=== PATIENT | female | born 1990 | race Caucasian/White ===

== ENCOUNTER 2023-04-29 07:05 | Inpatient (IN) ==
[~2023-04-29 07:05] MED LIST: CITRIC ACID/SODIUM CITRATE 15 ML UDC PO SCH; LACTATED RINGER'S 1,000 ML IV SCH; OXYTOCIN 10 UNITS/ML VIAL ONE; ceFAZolin 2,000 MG in SYRINGE 0 ML IV SCH
[2023-04-29] MEDS ORDERED: LACTATED RINGER'S 1,000 ML IV SCH ×2 (07:30→11:15)
[2023-04-29] MEDS ORDERED: fentaNYL citrate PF 100 MCG/2 ML VIAL ONE ×2 (07:31→09:49)
[2023-04-29] MEDS ORDERED: LIDOCAINE 2%/EPINEPHRINE 1:200,000 20 ML PF ONE (07:31)
[2023-04-29] MEDS ORDERED: SODIUM CHLORIDE 0.9% PF INJ 10 ML VIAL ONE (07:31)
[2023-04-29] MEDS ORDERED: BUPIVACAINE 0.25% PF 30 ML VIAL ONE (07:31)
[2023-04-29] MEDS ORDERED: ePHEDrine sulfate 50 MG/ML AMP ONE (07:31)
[2023-04-29] MEDS ORDERED: fentaNYL 2MCG/ML ROPIVACAINE 1.25MG/ML 100 ML BAG EPI ONE (07:32)
--- NOTE | 2023-04-29 07:44 | Obstetrical Progress Note ---
Date of Service April 29, 2023 Assessment & Plan Admission and Anticipated Discharge Date Admission Date: April 29, 2023 Subjective Patient presented for external cephalic version, planned with Dr Wei today. Limited bedside ultrasound performed - brenda breech presentation, head in maternal LUQ. Posterior placenta. Adequate-appearing amniotic fluid. + cardiac activity, + movement. Lab orders placed. Results & Data Vital Signs (Past 12 Hours) Vital Signs Temp Pulse Resp BP 04/29/23 07:13 36.8 C 95 H 20 114/66 PG Care Time/CCT Total # of Minutes Spent Total Time Spent with Patient: Total time spent is greater than 50% in coordination of care (as documented) at patient's floor/unit and/or counseling patient: Coding Level of Care Code None Diagnoses
[2023-04-29] MEDS ORDERED: TERBUTALINE SULFATE 1 MG/ML VIAL SQ ONE (07:46)
[2023-04-29 08:05] LABS: Basophils # (auto) 0.05 K/uL (0-0.2); Basophils % (auto) 0.4 %; Eosinophils # (auto) 0.25 K/uL (0-0.50); Eosinophils % (auto) 1.8 %; Hematocrit (blood only) 29.8 % (37.0-47.0); Hemoglobin 10.2 g/dl (12.0-16.0); Immature Granulocytes # (auto) 0.25 K/uL (0.01-0.20); Immature Granulocytes % (auto) 1.8 %; Lymphocytes % (auto) 17.2 %; Mean Corpuscular Hemoglobin 30.3 pg (25.0-34.0); Mean Corpuscular Hgb Conc 34.2 g/dL (32.0-36.0); Mean Corpuscular Volume 88.4 fL (80.0-100.0); Monocytes # (auto) 1.01 K/uL (0.11-0.59); Monocytes % (auto) 7.3 %; Neutrophils # (auto) 9.96 K/uL (1.40-6.50); Neutrophils % (auto) 71.5 %; Platelet Count 236 K/uL (130-400); RDW Coefficient of Variation 13.3 % (11.5-14.5); RDW Standard Deviation 42.3 fL (36.4-46.3); Red Blood Count 3.37 M/uL (4.20-5.40); White Blood Count 13.92 K/ul (4.8-10.8)
--- NOTE | 2023-04-29 08:09 | Anesthesiology Consultation ---
Date of Service April 29, 2023 Assessment & Plan Chart Review Chart Review: Acceptable Risk for Surgery and Patient NOT seen in Pre Admission Testing ASA ASA2 Proposed Anesthesia Anesthesia Type: MAC Epidural Risk / Benefits Reviewed With: PT / POA / Parent / Guardian, Accepts Plan and Informed Consent Obtained Additional Comments: will attempt version with epidural in the OR History Surgery Operation Date: 04/29/23 07:30 Proposed Procedures p Section (Delivery of Baby Through Abdominal Incision) - Antonia Wei MD, FACOG Height/Weight Height: 5 ft 2 in Weight: 86.636 kg Allergies Allergy/AdvReac Type Severity Reaction Status Date / Time cat dander Allergy Watery Eye Verified 04/29/23 07:16 dog dander Allergy Watery Eye Verified 04/29/23 07:16 grass pollen Allergy Watery Eye Verified 04/29/23 07:16 No Known Drug Allergies Allergy Unknown Verified 04/29/23 07:16 Medications Home Medications Medication Instructions Recorded Confirmed Last Taken prenat.vits,mateus,ltm-qrut-ksmbr 1 tab PO DAILY 10/07/22 04/29/23 04/28/23 19:00 Past Medical History Medical History No significant past medical history Exercise / Class Metabolic Activity II 4-5 Yardwork/Stairs/Walk up hill Past Family History Family History Mother Crohn's disease Denies family history of Colon cancer Ovarian cancer Prostate cancer Myocardial infarction Breast cancer Past Surgical History Surgical History S/P ACL repair S/P lateral meniscus repair of right knee S/P wisdom tooth extraction Past Anesthesia History No Hx of Anesthesia Complications and No Family Hx of Anesthesia Complications History of PONV No Hx of PONV and No Hx of Motion Sickness Social History Smoking Status: Never smoker Do You Dip or Chew Tobacco: No Hx Alcohol Use: Yes Alcohol type: beer, wine and hard liquor Hx Substance Use: No Review of Systems denies fever/cough/ colds/ chest pain/ SOB/ NEDA denies NEDA Physical Exam Vital Signs Last Vital Signs Temp 36.8 C 04/29/23 07:13 Pulse 95 H 07/12/23 07:13 Resp 20 04/29/23 07:13 BP 114/66 04/29/23 07:13 ENMT Mouth: no TMJ abnormality and no dentition abnormality Thyromental Distance: > or= 3.5 Finger Breadths Mallampati Class: II Neck neck extension not limited Respiratory normal respiratory effort; no respiratory distress Auscultation: lungs clear to auscultation bilaterally Cardiovascular Rate/Rhythm: regular rate and regular rhythm Neurologic moves all extremities Psychiatric Orientation: alert and oriented x 3
--- NOTE | 2023-04-29 08:49 | History & Physical Report ---
Date of Service April 29, 2023 Assessment & Plan (1) 39 weeks gestation of : (2) Breech presentation: Plan Will plan ecv this am. Consent reviewed and signed. Patient aware will induce labor if successful or c/s if not. She is planning epidural prior to turn, if ctx persist, will plan terb. FHTs categ 1. Consent for c/s also signed yesterday and reviewed. Admission and Anticipated Discharge Date Admission Date: April 29, 2023 History of Present Illness Chief Complaint: planned ecv Primary Care Provider: Ortega Root, 32yo at 39+wks ega presents to L&D for planned ecv and possible induction vs. c/s. Patient feels well this am. NPO. She notes US this am shows baby still breech. Yesterday had u/s with normal dvp and no evidence of nuchal. Ready to proceed. Has met anesthesia and he is coming to place epidural. PNC c/b 1. LGSIL pap 2. Breech PNL rh pos, ri, gbs neg OBH: g1 GYNH: nl paps no stds Allergies Allergy/AdvReac Type Severity Reaction Status Date / Time cat dander Allergy Watery Eye Verified 04/29/23 07:16 dog dander Allergy Watery Eye Verified 04/29/23 07:16 grass pollen Allergy Watery Eye Verified 04/29/23 07:16 No Known Drug Allergies Allergy Unknown Verified 04/29/23 07:16 Home Medications Medication Instructions Recorded Confirmed Type prenat.vits,mateus,jdm-daey-ijqyc 1 tab PO DAILY 10/07/22 04/29/23 History Patient History Medical History (Updated 04/29/23 @ 08:47 by Antonia Wei MD, FACOG) No significant past medical history Surgical History S/P ACL repair S/P lateral meniscus repair of right knee S/P wisdom tooth extraction Family History Mother Crohn's disease Denies family history of Colon cancer Ovarian cancer Prostate cancer Myocardial infarction Breast cancer Social History (Updated 10/07/22 @ 07:45 by Gini Hamilton) Smoking Status: Never smoker Second Hand Exposure: No; Do You Dip or Chew Tobacco: No; Hx Alcohol Use: Yes Alcohol type: beer, wine and hard liquor Alcohol Intake Frequency: Monthly or Less Hx Substance Use: No Preferred Language: Latvian Communication Ability: Effective Visual Impairment: No Limitations Hearing Ability: Normal Coat Maker Required: No Beliefs That Will Affect Care: None marital status: marital status details: Radames (31) [phone], Current Living Situation: Spouse Current Living Situation Comment: Lives with spouse, 3 cats, 2 dogs. current occupational status: employed current occupation: [employer] Feels Safe at Home: Yes Childhood Exposure to Second-Hand Smoke: No Diet: regular caffeine: No Dental Care, Regularly: No Physical Activity Frequency: 1-2 Times per Week Seatbelt Use: always Sunscreen Use: Yes Assistive Devices: None Review of Systems as per Subjective / HPI Physical Exam Constitutional: WD/WN, vitals as above Gastrointestinal (Abdomen): soft gravid nt Musculoskeletal: no edema Neurologic: grossly normal Psychiatric: A+Ox3, euthymic affect Genitourinary: OB Exam Monitor Tracing: + external FHT monitor used, + external uterine monitor used (q2-4), + category I and + normal FHT variability Results & Data Vital Signs (Past 12 Hours) Vital Signs Temp Pulse Resp BP 04/29/23 07:13 98.2 F 95 H 20 114/66 Coding Level of Care Code None Diagnoses 39 weeks gestation of Z3A.39 Breech presentation O32.1XX0
--- NOTE | 2023-04-29 09:47 | Obstetrical Progress Note ---
Date of Service April 29, 2023 Assessment & Plan (1) 39 weeks gestation of : (2) Breech presentation: (3) Failed external cephalic version: Plan ecv unsuccessful will plan c/s. consent already reviewed signed, pt and partner deny questions. Admission and Anticipated Discharge Date Admission Date: April 29, 2023 Subjective Ready for ecv Physical Exam Genitourinary: PROCEDURE: attempted 2 forward rolls and one backward roll. each time fhts checked in between. pt and baby rubi well. continues breech. Results & Data Vital Signs (Past 12 Hours) Vital Signs Temp Pulse Resp BP Pulse Ox 04/29/23 09:36 88 04/29/23 09:36 120/70 04/29/23 09:34 95 H 04/29/23 09:34 121/71 04/29/23 09:33 100 04/29/23 09:33 102 H 04/29/23 09:32 92 04/29/23 09:32 114 H 04/29/23 09:32 119/71 04/29/23 09:30 100 H 04/29/23 09:30 112/62 04/29/23 09:28 100 04/29/23 09:28 97 H 04/29/23 09:28 111/56 L 04/29/23 09:26 103 H 04/29/23 09:26 110/70 04/29/23 09:25 92 04/29/23 09:25 97 H 04/29/23 09:24 93 H 04/29/23 09:24 100/70 04/29/23 09:23 96 04/29/23 09:23 100 H 04/29/23 09:22 93 H 04/29/23 09:22 97/67 L 04/29/23 09:20 95 H 04/29/23 09:20 92/57 L 04/29/23 09:18 95 04/29/23 09:18 95 H 04/29/23 09:18 101/68 04/29/23 09:16 110 H 04/29/23 09:16 96/71 L 04/29/23 09:14 94 H 04/29/23 09:14 95/60 L 04/29/23 09:13 100 04/29/23 09:13 94 H 04/29/23 09:10 20 04/29/23 09:10 20 07/12/23 09:12 82 04/29/23 09:12 85/55 L 04/29/23 09:10 81 04/29/23 09:10 81/46 L 04/29/23 09:08 100 04/29/23 09:08 80 04/29/23 09:07 87 04/29/23 09:07 92/54 L 04/29/23 09:04 97 H 04/29/23 09:04 109/70 04/29/23 09:03 20 04/29/23 09:03 98.1 F 20 04/29/23 09:03 100 04/29/23 09:03 82 04/29/23 09:02 97 H 04/29/23 09:02 107/68 04/29/23 09:00 93 H 04/29/23 09:00 111/72 04/29/23 08:58 100 04/29/23 08:58 97 H 04/29/23 08:58 96 H 04/29/23 08:58 114/75 04/29/23 08:53 100 04/29/23 08:53 95 H 04/29/23 08:48 100 04/29/23 08:48 92 H 04/29/23 08:48 83 04/29/23 08:48 108/68 04/29/23 07:13 98.2 F 95 H 20 114/66 PG Care Time/CCT Total # of Minutes Spent Total Time Spent with Patient: Total time spent is greater than 50% in coordination of care (as documented) at patient's floor/unit and/or counseling patient: Coding Level of Care Code None Diagnoses 39 weeks gestation of Z3A.39 Breech presentation O32.1XX0 Failed external cephalic version O32.9XX0
[2023-04-29] MEDS ORDERED: MoRPHine SULFATE PF 1 MG/ML 10 ML AMP/VIAL ONE (09:49)
[2023-04-29] MEDS ORDERED: ePHEDrine sulfate 50 MG/ML AMP IV PRN (10:04)
[2023-04-29] MEDS ORDERED: MoRPHine SULFATE PF 1 MG/ML 10 ML AMP/VIAL EPI ONE (10:04)
[2023-04-29] MEDS ORDERED: NALOXONE HCL 0.4 MG/1 ML VIAL/CARP IV PRN (10:04)
[2023-04-29] MEDS ORDERED: NALOXONE HCL 0.08 MG in SYRINGE 1.8 ML IV PRN (10:04)
[2023-04-29] MEDS ORDERED: NALBUPHINE HCL INJ 10 MG/ML AMP IV PRN (10:04)
[2023-04-29] MEDS ORDERED: diphenhydrAMINE 50 MG/ML VIAL IV PRN (10:04)
[2023-04-29] MEDS ORDERED: LACTATED RINGER'S 500 ML IV PRN (10:04)
[2023-04-29] MEDS ORDERED: ONDANSETRON INJ 2 MG/ML 2 ML VIAL IV PRN ×2 (10:04→11:13)
[2023-04-29] MEDS ORDERED: NALOXONE HCL 1 MG in SODIUM CHLORIDE 0.9% 1000ML 1,000 ML IV PRN (10:04)
[2023-04-29] MEDS ORDERED: SODIUM CHLORIDE 0.9% 1000ML 1,000 ML IV SCH (10:15)
[2023-04-29] MEDS ORDERED: DC INTRASPINAL MORPHINE SCH (10:15)
[2023-04-29] MEDS ORDERED: NO NARCOTICS OR SEDATIVES SCH (10:15)
[2023-04-29] MEDS ORDERED: PHENYLEPHRINE 100MCG/ML 5ML SYR ONE (10:43)
[2023-04-29] MEDS ORDERED: ONDANSETRON INJ 2 MG/ML 2 ML VIAL ONE (10:44)
--- NOTE | 2023-04-29 11:04 | Operative Report ---
PG Post Operative Report Pre & Post Diagnosis Operation Date: 04/29/23 07:30 Pre-Op Diagnosis: 1. 39 week iup 2. Breech presentation 3. Failed external cephalic version Post-Op Diagnosis: Same;Delivery of a live baby girl at 1032 I identified the patient and participated in the time-out.: Yes Procedure Operation Date: 04/29/23 07:30 Actual Procedures p Primary Low Transverse Section (Delivery of Baby Through Abdominal Incision) - Antonia Wei MD, FACOG Surgeon Antonia Wei MD, FACOG [employer]ner RN, PGY 1 Estimated Blood Loss 700 Findings Consistent with Post-Op Diagnosis (viable female apgars pending, normal uterus, tubes and ovaries bilaterally. ) Fluids 1200 Specimens cord blood Drains caldwell Anesthesia Type Labor Epidural Complications none Disposition Accompanied Patient To Recovery: No Disposition: L&D Indications 32yo with breech presentation with failed attempt at version for planned section at 39 wks. Description of Procedure The patient was taken to the operating room and identified. After adequate ane sthesia was obtained, she was placed in the supine position with a leftward tilt on the operating table and prepped and draped in the usual sterile fashion. A caldwell catheter had already been placed. The knife was used to create a Pfannensteil skin incision that was carried down to the underlying layer of fascia. The fascia was nicked in the midline and this opening was extended laterally using Dickinson scissors. Janine clamps were placed on the superior and inferior aspect of the fascial incision tenting it upward and the underlying rectus muscles were dissected off the overlying fascia both sharply and bluntly using Dickinson scissors. The rectus muscles were bluntly in the midline. The peritoneal cavity was bluntly entered into. This opening was stretched. The bladder blade was placed. The vesicouterine peritoneum was elevated and opened up into and the bladder flap was created digitally and bladder blade was replaced. The knife was used to create a hysterotomy and this opening was stretched. The operators hand was placed through the hysterotomy and the bladder blade was removed. The buttocks was elevated with fundal pressure baby delivered to level of scapulae, arms swept across anterior midline, head flexed and delivered. The cord was clamped and cut and the 's mouth and nares were bulb suction. The was handed off to the awaiting pediatricians. Cord blood was obtained. The placenta was manually expressed. The uterus was exteriorized and cleared of all clots and debris. Dilute IV Pitocin was begun. The uterine tone was improving. The hysterotomy was closed in a running interlocking fashion using 0 Vicryl followed by a second imbricating layer of 0 Vicryl. The hysterotomy was hemostatic. The pelvis was irrigated. The uterus was returned to the abdomen. The gutters were cleared of all clots and debris. The hysterotomy was reinspected and an area of oozing at midline hysterotomy stitched with single figure of eight suture of 2-0 vicyrl. The hysterotomy was noted to be hemostatic. The fascia was then closed in running fashion using 0 Vicryl. The subcutaneous fat was copiously irrigated and reapproximated using 2-0 chromic. The skin was closed in a subcuticular fashion using 4-0 monocryl. At this point the procedure was terminated. The patient was transferred to the recovery room in stable condition. All sponge, lap and needle counts are correct x2. I attest to the content of the Intraoperative Record and any orders documented therein. Any exceptions are noted below. OB Procedure Charges 71146
[2023-04-29] MEDS ORDERED: SENNA 8.6 MG TAB PO PRN (11:13)
[2023-04-29] MEDS ORDERED: IBUPROFEN 600 MG TAB PO PRN (11:13)
[2023-04-29] MEDS ORDERED: oxyCODONE/ACETAMINOPHEN 5mg/325mg TAB PO PRN (11:13)
[2023-04-29] MEDS ORDERED: DIPHTHERIA/TETANUS/PERTUSSIS Vaccine (Tdap, Age 7+yrs) 0.5mL SYR/VL IM ONE (11:13)
[2023-04-29] MEDS ORDERED: KETOROLAC 30 MG/ML VIAL IV PRN (11:13)
[2023-04-29] MEDS ORDERED: HYDROCORTISONE ACETATE 25 MG SUPP PR PRN (11:13)
[2023-04-29] MEDS ORDERED: PROMETHAZINE HCL 25 MG in SODIUM CHLORIDE 0.9% 50 ML IV PRN (11:13)
[2023-04-29] MEDS ORDERED: MAGNESIUM HYDROXIDE SUSP 30 ML UDC PO PRN (11:13)
[2023-04-29] MEDS ORDERED: BENZOCAINE 20% AER SPR 82.5 GM CAN EXT PRN (11:13)
[2023-04-29] MEDS: OXYTOCIN 20 UNITS in LACTATED RINGER'S 1,000 ML IV SCH ×2 (11:38→19:47)
--- NOTE | 2023-04-29 13:07 | Anesthesiology Progress Note ---
Date of Service April 29, 2023 Anesthesia Post Procedure Vital Signs Vital Signs: Temp Pulse Resp BP Pulse Ox 04/29/23 12:40 20 04/29/23 12:10 20 04/29/23 12:00 20 04/29/23 11:50 18 04/29/23 11:40 18 04/29/23 11:30 18 04/29/23 11:11 36.6 C 20 04/29/23 11:21 20 04/29/23 13:05 100 04/29/23 13:05 79 04/29/23 13:00 100 04/29/23 13:00 84 04/29/23 12:55 100 04/29/23 12:55 83 04/29/23 12:50 100 04/29/23 12:50 93 H 04/29/23 12:45 100 04/29/23 12:45 82 04/29/23 12:40 100 04/29/23 12:40 77 04/29/23 12:41 78 04/29/23 12:41 121/83 04/29/23 12:35 100 04/29/23 12:35 85 04/29/23 12:30 100 04/29/23 12:30 75 04/29/23 12:25 100 04/29/23 12:25 75 04/29/23 12:20 100 04/29/23 12:20 79 04/29/23 12:15 100 04/29/23 12:15 104 H 04/29/23 12:10 100 04/29/23 12:10 78 04/29/23 12:11 134 H 04/29/23 12:11 122/56 L 04/29/23 12:05 100 04/29/23 12:05 76 04/29/23 12:00 100 04/29/23 12:00 77 04/29/23 12:01 74 04/29/23 12:01 115/51 L 04/29/23 11:55 100 04/29/23 11:55 80 04/29/23 11:51 79 04/29/23 11:51 115/53 L 04/29/23 11:50 100 04/29/23 11:50 81 04/29/23 11:45 100 04/29/23 11:45 79 04/29/23 11:40 99 04/29/23 11:40 79 07/12/23 11:41 78 04/29/23 11:41 101/51 L 04/29/23 11:35 96 04/29/23 11:35 86 04/29/23 11:34 92 04/29/23 11:34 81 04/29/23 11:30 100 04/29/23 11:30 73 04/29/23 11:30 101/54 L 04/29/23 11:25 100 04/29/23 11:25 74 04/29/23 11:20 100 04/29/23 11:20 76 04/29/23 11:21 72 04/29/23 11:21 96/46 L 04/29/23 11:15 100 04/29/23 11:15 73 04/29/23 11:11 75 04/29/23 11:11 98/51 L 04/29/23 11:10 100 04/29/23 11:10 75 04/29/23 10:03 100 04/29/23 10:03 81 04/29/23 10:04 81 04/29/23 10:04 115/65 04/29/23 10:03 92 04/29/23 10:03 79 04/29/23 10:00 20 04/29/23 10:00 20 04/29/23 10:00 73 04/29/23 10:00 108/61 04/29/23 09:58 100 04/29/23 09:58 81 04/29/23 09:55 74 04/29/23 09:55 109/63 04/29/23 09:53 100 04/29/23 09:53 81 04/29/23 09:49 78 04/29/23 09:49 112/64 04/29/23 09:48 96 04/29/23 09:48 83 04/29/23 09:48 91 04/29/23 09:48 88 04/29/23 09:45 81 04/29/23 09:45 103/58 L 04/29/23 09:43 99 04/29/23 09:43 78 04/29/23 09:41 90 04/29/23 09:41 96 H 04/29/23 09:38 100 04/29/23 09:38 94 H 04/29/23 09:39 93 H 04/29/23 09:39 121/70 04/29/23 09:36 88 04/29/23 09:36 120/70 04/29/23 09:34 95 H 04/29/23 09:34 121/71 04/29/23 09:33 100 04/29/23 09:33 102 H 04/29/23 09:32 92 04/29/23 09:32 114 H 04/29/23 09:32 119/71 04/29/23 09:30 100 H 04/29/23 09:30 112/62 04/29/23 09:28 100 04/29/23 09:28 97 H 04/29/23 09:28 111/56 L 04/29/23 09:26 103 H 04/29/23 09:26 110/70 04/29/23 09:25 92 04/29/23 09:25 97 H 04/29/23 09:24 93 H 04/29/23 09:24 100/70 04/29/23 09:23 96 04/29/23 09:23 100 H 04/29/23 09:22 93 H 04/29/23 09:22 97/67 L 04/29/23 09:20 95 H 04/29/23 09:20 92/57 L 04/29/23 09:18 95 04/29/23 09:18 95 H 04/29/23 09:18 101/68 04/29/23 09:16 110 H 04/29/23 09:16 96/71 L 04/29/23 09:14 94 H 04/29/23 09:14 95/60 L 04/29/23 09:13 100 04/29/23 09:13 94 H 04/29/23 09:10 20 04/29/23 09:10 20 04/29/23 09:12 82 04/29/23 09:12 85/55 L 04/29/23 09:10 81 04/29/23 09:10 81/46 L 04/29/23 09:08 100 04/29/23 09:08 80 04/29/23 09:07 87 04/29/23 09:07 92/54 L 04/29/23 09:04 97 H 04/29/23 09:04 109/70 04/29/23 09:03 20 04/29/23 09:03 36.7 C 20 04/29/23 09:03 100 04/29/23 09:03 82 04/29/23 09:02 97 H 04/29/23 09:02 107/68 04/29/23 09:00 93 H 04/29/23 09:00 111/72 04/29/23 08:58 100 04/29/23 08:58 97 H 04/29/23 08:58 96 H 04/29/23 08:58 114/75 04/29/23 08:53 100 04/29/23 08:53 95 H 04/29/23 08:48 100 04/29/23 08:48 92 H 04/29/23 08:48 83 04/29/23 08:48 108/68 04/29/23 07:13 36.8 C 95 H 20 114/66 Transfer of Care Handoff Completed per policy Notes Mental Status: alert / awake / arousable and participated in evaluation Patient Amnestic to Procedure: Yes Nausea / Vomiting: adequately controlled Pain: adequately controlled Airway Patency, RR, SpO2: stable & adequate BP & HR: stable & adequate Hydration State: stable & adequate Anesthetic Complications: no major complications apparent and Pt Satisfied with anesthetic care
--- NOTE | 2023-04-29 13:07 | Anesthesia Procedure Note ---
Date of Service April 29, 2023 Anesthesia Post Epidural Note Vital Signs Vital Signs: Temp Pulse Resp BP Pulse Ox 36.6 C 79 20 121/83 100 04/29/23 11:11 04/29/23 13:05 04/29/23 12:40 04/29/23 12:41 04/29/23 13:05 Notes Mental Status: alert / awake / arousable and participated in evaluation Nausea / Vomiting: adequately controlled Pain: adequately controlled Airway Patency, RR, SpO2: stable & adequate BP & HR: stable & adequate Hydration State: stable & adequate Neuraxial Anesthesia: was administered and sensory block is resolving Anesthetic Complications: no major complications apparent and Pt Satisfied with anesthetic care Epidural: Removed without complications and With tip intact
[2023-04-29] MEDS: KETOROLAC 30 MG/ML VIAL IV PRN ×2 (14:55→20:52)
[2023-04-29] MEDS: HYDROmorphone INJ 0.5 MG/0.5 ML SYR IV PRN (15:37)
[2023-04-29] MEDS: SIMETHICONE 80 MG CHEW PO SCH ×3 (19:10→20:52)
[2023-04-29] MEDS: DOCUSATE SODIUM 100 MG CAP PO SCH (20:52)
[2023-04-30] MEDS: HYDROmorphone INJ 0.5 MG/0.5 ML SYR IV PRN (01:09)
[2023-04-30] MEDS ORDERED: ZOLPIDEM TARTRATE 5 MG TAB PO PRN (04:05)
[2023-04-30] MEDS ORDERED: diphenhydrAMINE Capsule 25 MG CAP PO PRN (04:05)
[2023-04-30] MEDS ORDERED: diphenhydrAMINE 50 MG/ML VIAL IV PRN (04:05)
[2023-04-30] MEDS ORDERED: KETOROLAC 30 MG/ML VIAL IV PRN (04:05)
[2023-04-30] MEDS ORDERED: ONDANSETRON INJ 2 MG/ML 2 ML VIAL IV PRN (04:05)
[2023-04-30] MEDS ORDERED: PROMETHAZINE HCL 25 MG in SODIUM CHLORIDE 0.9% 50 ML IV PRN (04:05)
[2023-04-30] MEDS: oxyCODONE/ACETAMINOPHEN 5mg/325mg TAB PO PRN ×5 (04:48→20:28)
[2023-04-30] MEDS: IBUPROFEN 600 MG TAB PO PRN ×5 (04:48→20:27)
[2023-04-30 06:32] LABS: Basophils # (auto) 0.04 K/uL (0-0.2); Basophils % (auto) 0.3 %; Eosinophils # (auto) 0.09 K/uL (0-0.50); Eosinophils % (auto) 0.6 %; Hematocrit (blood only) 28.7 % (37.0-47.0); Hemoglobin 9.9 g/dl (12.0-16.0); Immature Granulocytes # (auto) 0.15 K/uL (0.01-0.20); Lymphocytes # (auto) 1.32 K/uL (1.2-3.4); Mean Corpuscular Hemoglobin 30.5 pg (25.0-34.0); Mean Corpuscular Hgb Conc 34.5 g/dL (32.0-36.0); Mean Corpuscular Volume 88.3 fL (80.0-100.0); Mean Platelet Volume 10.1 fL (9.4-12.4); Monocytes # (auto) 0.72 K/uL (0.11-0.59); Monocytes % (auto) 4.9 %; Neutrophils # (auto) 12.35 K/uL (1.40-6.50); Neutrophils % (auto) 84.2 %; Platelet Count 212 K/uL (130-400); RDW Coefficient of Variation 13.2 % (11.5-14.5); RDW Standard Deviation 42.6 fL (36.4-46.3); Red Blood Count 3.25 M/uL (4.20-5.40); White Blood Count 14.67 K/ul (4.8-10.8)
--- NOTE | 2023-04-30 07:16 | Obstetrical Progress Note ---
Date of Service <Dariana Garcia DO - Last Filed: 04/30/23 07:16> April 30, 2023 Assessment & Plan <Dariana Garcia DO - Last Filed: 04/30/23 07:16> (1) care following delivery: Pt doing well today. Pain well controlled with toradol. Routine care; OOB, ambulation, diet progression as tolerated. Plan for discharge tomorrow if patient able to ambulate and void on own. After discharge will have 6 week follow-up with Dr. Wei <Antonia Wei MD, FACOG - Last Filed: 04/30/23 08:36> (1) care following delivery: Subjective <Dariana Garcia DO - Last Filed: 04/30/23 07:16> Pt is a 32 y/o female who is POD#1 following delivery for breech presentation after unsuccessful external cephalic version at 39+ weeks. Pt states that she is feeling well this morning. She states that she has been able to eat crackers and have juice without nausea or vomiting, but has not had a meal yet since the . She has been passing gas since the surgery. She has not voided yet, but notes that the caldwell catheter was just removed around 4am. No bowel movement yet. Her pain ranges from 1/10 to 8/10 at the worst, but is well controlled with Toradol prn. She states that she did try to get up to walk around, but felt nauseated when she did and so she sat back down. She states she feels that once she eats a meal, she may do better getting up and moving around. She is breast feeding and it is going well. No questions or complaints at this time. Constitutional: no fever, no chills or no sweats Respiratory: no dyspnea Cardiovascular: no chest pain or no palpitations Breast: no breast pain Genitourinary (female): no dysuria Neurologic: no headache(s) no changes in vision, no headaches Physical Exam <Dariana Garcia DO - Last Filed: 04/30/23 07:16> General: Alert, oriented. No acute distress. Cardiac: Regular rate and rhythm, no murmurs, rubs, or gallops. Respiratory: Clear to auscultation bilaterally, no wheezes/rales/rhonchi. No increased work of breathing. Symmetrical chest rise. No respiratory distress. Abdomen: Soft, nontender, nondistended. Bowel sounds present. Uterus: Uterine fundus firm. Surgical incision clean and well approximated. No drainage noted, healing well. Lower extremities: No lower extremity edema or swelling. No deep calf pain. Results & Data <Dariana Garcia DO - Last Filed: 04/30/23 07:16> Vital Signs (Past 12 Hours) Vital Signs Temp Pulse Resp BP Pulse Ox O2 Del Method 04/30/23 04:04 36.6 C 76 18 99/61 L 96 Room Air 04/30/23 04:04 18 96 04/30/23 03:13 18 96 04/30/23 02:10 18 96 04/30/23 01:02 18 97 04/30/23 00:10 18 97 04/29/23 23:28 36.9 C 73 18 100/64 98 Room Air 04/29/23 23:03 18 98 04/29/23 22:15 18 97 04/29/23 21:12 18 97 04/29/23 20:00 18 97 04/29/23 19:16 18 98 04/29/23 20:43 36.8 C 86 18 102/63 98 Room Air <Antonia Wei MD, FACOG - Last Filed: 04/30/23 08:36> Co-Signing Physician Notes Resident Physician Supervision Note: I was present with Dr. Garcia during the history and exam. I discussed the case with the resident and agree with the findings and plan as documented in the note. Any exceptions or clarifications are listed here: stable, doing well. +Flatus. abd soft ff 2 down nt, incision c/d/i. nt calves. pod#1, ambulate, adv diet. po pain meds. monitor for good voiding. routine care. rh pos, ri, . Documented By: Antonia Wei MD, FACOG Resident Activity Tracking <Dariana Garcia DO - Last Filed: 04/30/23 07:16> Resident Involvement: Resident Care Provided Care Provided: OB Delivery
[2023-04-30] MEDS: DOCUSATE SODIUM 100 MG CAP PO SCH ×2 (08:58→20:26)
[2023-04-30] MEDS: PRENATAL VITAMIN 1 TAB PO SCH (08:58)
[2023-04-30] MEDS: FERROUS SULFATE 325 MG TAB PO SCH (08:58)
[2023-04-30] MEDS: SIMETHICONE 80 MG CHEW PO SCH ×4 (08:58→20:26)
[2023-04-30] MEDS ORDERED: bisacodyL 5 MG TABEC PO SCH (20:00)
[2023-05-01] MEDS: IBUPROFEN 600 MG TAB PO PRN ×5 (00:40→20:12)
[2023-05-01] MEDS: oxyCODONE/ACETAMINOPHEN 5mg/325mg TAB PO PRN ×5 (00:40→20:12)
--- NOTE | 2023-05-01 06:12 | Obstetrical Progress Note ---
Date of Service <Dariana Garcia DO - Last Filed: 05/01/23 06:20> May 01, 2023 Assessment & Plan <Dariana Garcia DO - Last Filed: 05/01/23 06:20> (1) care following delivery: Pt doing well today. Eating, voiding, and ambulating well. Pain well controlled with prn analgesics. Routine care; OOB, ambulation, continue regular diet. Plan for discharge tomorrow. After discharge will have 6 week follow-up with Dr. Wei. <Chelly Kim MD, FACOG - Last Filed: 05/01/23 06:49> (1) care following delivery: Subjective <Dariana Garcia DO - Last Filed: 05/01/23 06:20> Pt is a 32 y/o female who is POD#2 following delivery for breech presentation after unsuccessful external cephalic version at 39+ weeks. Pt states that she is doing well. She states that she was up walking around yesterday after the morning time without difficulty. She has been passing gas and voiding appropriately, but no bowel movement since the delivery. She has been tolerating regular meals with no nausea or vomiting. She states that her pain has been a 0/10, but she is worried about pain when she starts to move around and about the need to use strong pain medication to ambulate comfortably. She has lochia this morning that has been improving. She is still breast feeding but is worried the baby is not getting enough or latching properly, so she states that she would feel most comfortable staying one more day. She has started to supplement with bottle feeding. No further questions or complaints at this time. Constitutional: no fever, no chills or no sweats Respiratory: no dyspnea Cardiovascular: no chest pain or no palpitations Breast: no breast pain Genitourinary (female): no dysuria Neurologic: no headache(s) no changes in vision, no headaches Physical Exam <Dariana Garcia DO - Last Filed: 05/01/23 06:20> General: Alert, oriented. No acute distress. Cardiac: Regular rate and rhythm, no murmurs, rubs, or gallops. Respiratory: Clear to auscultation bilaterally a/p, no wheezes/rales/rhonchi. No increased work of breathing. Symmetrical chest rise. No respiratory distress. Abdomen: Soft, nontender, nondistended. Bowel sounds present. Uterus: Uterine fundus firm. Surgical scar well approximated without any discharge or erythema, healing well. Lower extremities: No lower extremity edema or swelling. No deep calf pain. Results & Data <Dariana Garcia DO - Last Filed: 05/01/23 06:20> Vital Signs (Past 12 Hours) Vital Signs Temp Pulse Resp BP Pulse Ox O2 Del Method 04/30/23 23:30 36.7 C 82 16 97/63 L 97 Room Air <Chelly Kim MD, FACOG - Last Filed: 05/01/23 06:49> Co-Signing Physician Notes Resident Physician Supervision Note: I interviewed and examined the patient. Discussed with Dr. Garcia and agree with findings and plan as documented in the note. Any exceptions or clarifications are listed here: [None] Documented By: Chelly Kim MD, FACOG Resident Activity Tracking <Dariana Garcia DO - Last Filed: 05/01/23 06:20> Resident Involvement: Resident Care Provided Care Provided: OB Delivery
[2023-05-01] MEDS ORDERED: ACETAMINOPHEN 500 MG TAB PO PRN (07:11)
[2023-05-01 07:23] LABS: Hematocrit (blood only) 28.2 % (37.0-47.0); Hemoglobin 9.3 g/dl (12.0-16.0)
[2023-05-01] MEDS: PRENATAL VITAMIN 1 TAB PO SCH (09:54)
[2023-05-01] MEDS: SIMETHICONE 80 MG CHEW PO SCH ×4 (09:54→20:11)
[2023-05-01] MEDS: DOCUSATE SODIUM 100 MG CAP PO SCH ×2 (09:54→20:12)
[2023-05-01] MEDS: FERROUS SULFATE 325 MG TAB PO SCH (09:54)
[2023-05-01] MEDS ORDERED: bisacodyL 10 MG SUPP PR PRN (11:10)
[2023-05-02] MEDS: oxyCODONE/ACETAMINOPHEN 5mg/325mg TAB PO PRN ×3 (01:30→12:40)
[2023-05-02] MEDS: IBUPROFEN 600 MG TAB PO PRN ×3 (01:30→12:40)
--- NOTE | 2023-05-02 05:54 | Obstetrical Progress Note ---
Date of Service <Darianapato Garcia DO - Last Filed: 05/02/23 05:57> May 02, 2023 Assessment & Plan <Dariana Adam DO Jose - Last Filed: 05/02/23 05:57> (1) care following delivery: Pt doing well today, has been eating, ambulating, and voiding without issue. Pain well controlled with prn analgesics. Routine care; OOB, ambulation, continue regular diet. Plan for discharge today. After discharge will have 6 week follow-up with Dr. Wei. <Clau Skinner MD - Last Filed: 05/02/23 07:26> (1) care following delivery: Subjective <Dariana Jair DO Jose - Last Filed: 05/02/23 05:57> Pt is a 32 y/o female who is POD#3 following delivery for breech presentation after unsuccessful external cephalic version at 39+ weeks. Patient is doing well today. She has been able to ambulate on own and has been eating regular diet without nausea or vomiting. She is urinating and passing gas appropriately and has had a bowel movement since her procedure. Her pain today is a 1/10 and she states that she really is only having pain when she walks around or changes position. She is breast feeding and states that that is going okay so far. She states that she would like to go home today. Constitutional: no fever, no chills or no sweats Respiratory: no dyspnea Cardiovascular: no chest pain or no palpitations Breast: no breast pain Genitourinary (female): no dysuria Neurologic: no headache(s) no changes in vision, no headaches Physical Exam <Dariana Garcia DO - Last Filed: 05/02/23 05:57> General: Alert, oriented. No acute distress. Cardiac: Regular rate and rhythm, no murmurs, rubs, or gallops. Respiratory: Clear to auscultation bilaterally, no wheezes/rales/rhonchi. No increased work of breathing. Symmetrical chest rise. No respiratory distress. Abdomen: Soft, nontender, nondistended. Bowel sounds present. Uterus: Uterine fundus firm. Surgical scar healing well without erythema, separation, or discharge. Lower extremities: No lower extremity edema or swelling. No deep calf pain. Results & Data <Dariana Garcia DO - Last Filed: 05/02/23 05:57> Vital Signs (Past 12 Hours) Vital Signs Temp Pulse Resp BP Pulse Ox O2 Del Method 05/01/23 22:56 36.5 C 76 18 103/65 97 Room Air 05/01/23 20:00 36.8 C 89 18 116/75 94 Room Air <Clau Skinner MD - Last Filed: 05/02/23 07:26> Co-Signing Physician Notes Resident Physician Supervision Note: I interviewed and examined the patient. Discussed with Dr. Garcia and agree with findings and plan as documented in the note. Any exceptions or clarifications are listed here: POD3 s/p pLTCS, doing well. VSS, exam benign and wnl, incision c/d/i. Stable for d/c home today Documented By: Clau Skinner MD Resident Activity Tracking <Dariana Garcia DO - Last Filed: 05/02/23 05:57> Resident Involvement: Resident Care Provided Care Provided: OB Delivery
[2023-05-02] MEDS: DOCUSATE SODIUM 100 MG CAP PO SCH (08:33)
[2023-05-02] MEDS: PRENATAL VITAMIN 1 TAB PO SCH (08:33)
[2023-05-02] MEDS: FERROUS SULFATE 325 MG TAB PO SCH (08:33)
[2023-05-02] MEDS: SIMETHICONE 80 MG CHEW PO SCH ×2 (08:33→12:40)
--- NOTE | 2023-05-04 11:03 | Discharge Summary ---
Date of Service Date of admission: April 29, 2023 Date of discharge: May 02, 2023 Admission HPI Per Admitting Provider 32yo at 39+wks chema presents to L&D for planned ecv and possible induction vs. c/s. Patient feels well this am. NPO. She notes US this am shows baby still breech. Y esterday had u/s with normal dvp and no evidence of nuchal. Ready to proceed. Has met anesthesia and he is coming to place epidural. PNC c/b 1. LGSIL pap 2. Breech PNL rh pos, ri, gbs neg OBH: g1 GYNH: nl paps no stds Discharge Data Consultations 04/29/23 07:29 Consult Anesthesiology Stat Procedures Performed Operation Date: 04/29/23 07:30 Actual Procedures p Primery Low Transverse Section (Delivery of Baby Through Abdominal Incision) - Antonia Wei MD, [facility] Course (1) 39 weeks gestation of : (2) Breech presentation: (3) Failed external cephalic version: Plan Patient received an epidural. Underwent attempted ecv without success. Proceeded to section. The patient underwent the above stated procedure without incident and her postoperative course and recovery was uncomplicated. On her postoperative day #3 she was tolerating a regular diet, voiding spontaneously, ambulating without problem and was using oral meds for adequate pain control. Her postoperative hemoglobin was 9.3. She was given written and verbal discharge instructions and told to followup in office at 6wks. She was given appropriate pain medicine prescriptions. Coding Level of Care Code None Diagnoses 39 weeks gestation of Z3A.39 Breech presentation O32.1XX0 Failed external cephalic version O32.9XX0
== END 2023-05-02 14:33 | disposition home or self-care (01) | DRG 788 ==
LOC: 4S1 07:05 → 4E2 13:13